=== PATIENT | male | born 1930 | race Caucasian/White ===

== ENCOUNTER 2018-08-16 09:53 | Outpatient (CLI) | payer MEDICARE ==
--- NOTE | 2018-08-16 15:55 | NM ---
WHOLE BODY BONE SCAN: 08/16/18 HISTORY: Malignant neoplasm of prostate, rising PSA levels. RADIOPHARMACEUTICAL: 31 millicuries technetium 99m MDP injected intravenously. COMPARISON: None. FINDINGS: There is mildly increased uptake in the lower lumbar spine likely at L5 level. Increased uptake in the shoulders, wrists, and feet are consistent with degenerative changes. Tracer excretion of the kidneys is within normal limits. IMPRESSION: Mildly increased uptake in the lower lumbar spine. Correlation with MRI (with and without IV contrast ) is recommended. POS: SERENA
== END 2018-08-16 09:54 | disposition home or self-care (01) ==
LOC: NM 09:53
PROVIDERS: ATTEND Radiology Radiation Oncology
DX: C61 Malignant neoplasm of prostate (principal); Z92.3 Personal history of irradiation
CPT/HCPCS: 78306; A9503

== ENCOUNTER 2018-08-18 10:02 | Outpatient (CLI) | payer MEDICARE ==
[~2018-08-18 10:02] MED LIST: Iopamidol 300 61% 100 ML VIAL FS ONE
--- NOTE | 2018-08-18 16:02 | CT ---
CT ABDOMEN AND PELVIS PERFORMED WITH CONTRAST ENHANCEMENT: HISTORY: The patient was diagnosed with prostate cancer 10 years ago, now with a rising PSA. FINDINGS: ABDOMEN: The lung bases are clear. Hypodensities within the right and left lobes of the liver are t oo small to characterize but are statistically most likely cysts. The spleen is normal in appearance . the pancreas and gallbladder regions appear unremarkable. The right and left adrenal glands are normal in size and appearance. A small exophytic hypodensity i nvolving the left kidney is statistically most likely a small cyst. There is no significant periaort ic or mesenteric adenopathy. The infrarenal abdominal aorta is somewhat tortuous and minimally ectat ic, but AP dimension is 2.5 cm. 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 No bowel wall abnormalities are seen. PELVIS: Minimal sigmoid diverticulosis is seen. There is no evidence of any pelvic lymphadenopathy or mass. Prostate calcifications are seen. Upon review of the osseous structures, there are arthritic changes of the spine noted. There is no l ytic or blastic bony change. IMPRESSION: Hypodensities involving the liver and spleen, which are statistically most likely small cysts. No si gnificant abdominal or pelvic lymphadenopathy is seen. POS: SERENA
== END 2018-08-18 10:03 | disposition home or self-care (01) ==
LOC: SCSCT 10:02
PROVIDERS: ATTEND Radiology Radiation Oncology
DX: C61 Malignant neoplasm of prostate (principal)
CPT/HCPCS: 74177; 82565